=== PATIENT | male | born 1975 | race Caucasian/White ===

== ENCOUNTER 2020-02-01 19:35 | Inpatient (IN) ==
[2020-02-01] MEDS ORDERED: Lidocaine/EPI 1:100k 1% 30 ML VIAL INFILT ONE (19:39)
[2020-02-01 22:27] LABS: VBG HCO3 27 mEq/L (21-27); VBG PCO2 47 mmHg (41-51); VBG PH 7.36 pH Units (7.32-7.42); VBG PO2 55 mmHg (25-50)
[2020-02-01 22:49] LABS: Calcium 9.2 mg/dL (8.6-10.3); Potassium 3.1 mEq/L (3.5-5.1)
[2020-02-01] MEDS ORDERED: D5% in 0.45% NACL w KCl 20 MEQ/1,000 ML MLS IVC PRN (22:54)
[2020-02-01] MEDS ORDERED: D5% in 0.45% NACL 1,000 ML IVC PRN (22:54)
[2020-02-01] MEDS ORDERED: *HR* Dextrose 50 % in Water (Vial) 50 ML VIAL IVP PRN (22:54)
[2020-02-01] MEDS ORDERED: 0.45 % Sodium Chloride w/KCl 20 MEQ/1,000 ML MLS IVC PRN (23:00)
[2020-02-01] MEDS ORDERED: Insulin Human Regular 100 UNIT in 0.9 % Sodium Chloride 100 ML IVC SCH (23:00)
[2020-02-01 23:02] LABS: Basophils # 0.1 K/mcL (0.0-0.2); Basophils % 0.4 %; Eosinophils % 0.2 %; Hematocrit 43.6 % (37.5-50.1); Immature Granulocytes % 1.1 % (0-4); Lymphocytes # 2.4 K/mcL (0.6-4.6); Lymphocytes % 19.2 %; Mean Corpuscular HGB Conc 34.4 g/dL (31.6-35.5); Mean Corpuscular Hemoglobin 28.8 pg (28.0-33.3); Mean Corpuscular Volume 83.8 fL (83.0-100.0); Mean Platelet Volume 9.8 fL (9.4-12.4); Monocytes # 1.1 K/mcL (0.0-1.3); Monocytes % 8.6 %; Platelet Count 271 K/mcL (140-400); Red Cell Distribution Width 13.3 % (11.5-14.5); Segmented Neutrophils % 70.5 %; White Blood Count 12.7 K/mcL (4.3-11.1)
[2020-02-01] MEDS: 0.9 % Sodium Chloride 1,000 ML IVC SCH (23:55)
[2020-02-02] MEDS ORDERED: Insulin Regular, Human 100 UNIT/ML IV PRN ×2 (02:06)
[2020-02-02] MEDS ORDERED: 0.9 % Sodium Chloride 1,000 ML IVC SCH ×2 (02:15)
[2020-02-02] MEDS ORDERED: Naloxone 0.4 MG/ML INJ IVP PRN (02:19)
[2020-02-02 04:07] LABS: BUN/Creatinine Ratio 30 (6-26); Blood Urea Nitrogen 43 mg/dL (6-20); Calcium 8.7 mg/dL (8.6-10.3); Carbon Dioxide 29 mEq/L (23-29); Chloride 96 mEq/L (98-107); Glucose 151 mg/dL (70-105); Osmolality,Calculated 298 (280-300); Potassium 2.9 mEq/L (3.5-5.1); Sodium 137 mEq/L (136-145); eGFR For African Americans > 60 (> 60); eGFR For Non-African Americans 53 (> 60)
[2020-02-02] MEDS ORDERED: Insulin Human Regular 100 UNIT in 0.9 % Sodium Chloride 100 ML IVC SCH (04:15)
[2020-02-02] MEDS ORDERED: Insulin DETEMIR 100 UNIT/ML X5UNITS SQ ONE (04:28)
[2020-02-02] MEDS ORDERED: *HR* Dextrose 50 % in Water (Vial) 50 ML VIAL IVP PRN (04:30)
[2020-02-02] MEDS ORDERED: Dextrose Gel 15 GM/37.5 ML TUBE PO PRN ×2 (04:30)
[2020-02-02] MEDS ORDERED: D5% in Water 1,000 ML IVC PRN (04:30)
[2020-02-02] MEDS: Insulin LISPRO 300 UNITS/3 ML VIAL SQ SCH ×4 (07:54→20:26)
[2020-02-02 09:21] LABS: Hematocrit 38.8 % (37.5-50.1); Hemoglobin 13.7 g/dL (12.9-16.9); Mean Corpuscular HGB Conc 35.3 g/dL (31.6-35.5); Mean Corpuscular Hemoglobin 29.4 pg (28.0-33.3); Mean Corpuscular Volume 83.3 fL (83.0-100.0); Mean Platelet Volume 9.9 fL (9.4-12.4); Platelet Count 188 K/mcL (140-400); Red Blood Count 4.66 M/mcL (4.19-5.50); Red Cell Distribution Width 13.2 % (11.5-14.5)
[2020-02-02 09:30] LABS: Estimated Average Glucose 398 mg/dl
[2020-02-02] MEDS ORDERED: *HR* LORazepam 2 MG/ML VIAL ONE (09:34)
[2020-02-02 09:39] LABS: BUN/Creatinine Ratio 29 (6-26); Blood Urea Nitrogen 42 mg/dL (6-20); Calcium 8.3 mg/dL (8.6-10.3); Carbon Dioxide 26 mEq/L (23-29); Chloride 95 mEq/L (98-107); Glucose 374 mg/dL (70-105); Magnesium 1.4 mg/dL (1.6-2.6); Osmolality,Calculated 306 (280-300); Potassium 3.3 mEq/L (3.5-5.1); Sodium 135 mEq/L (136-145); eGFR For African Americans > 60 (> 60); eGFR For Non-African Americans 53 (> 60)
[2020-02-02] MEDS ORDERED: Potassium Phosphate 44 MEQ in 0.9 % Sodium Chloride 250 ML IVPB ONE (09:44)
[2020-02-02] MEDS: levETIRAcetam 1,000 MG in 0.9 % Sodium Chloride 100 ML IVPB SCH ×2 (10:37→20:26)
[2020-02-02] MEDS ORDERED: Sennosides/Docusate Sodium TABLET PO PRN (17:32)
[2020-02-03 05:05] LABS: INR 0.9; Prothrombin Time 10.5 Seconds (9.4-12.1)
[2020-02-03 05:07] LABS: Basophils % 0.5 %; Eosinophils # 0.1 K/mcL (0.0-0.6); Eosinophils % 0.8 %; Hematocrit 38.7 % (37.5-50.1); Hemoglobin 12.7 g/dL (12.9-16.9); Immature Granulocytes % 0.8 % (0-4); Lymphocytes # 1.7 K/mcL (0.6-4.6); Lymphocytes % 23.4 %; Mean Corpuscular HGB Conc 32.8 g/dL (31.6-35.5); Mean Corpuscular Hemoglobin 28.4 pg (28.0-33.3); Mean Corpuscular Volume 86.6 fL (83.0-100.0); Mean Platelet Volume 9.9 fL (9.4-12.4); Monocytes # 0.7 K/mcL (0.0-1.3); Monocytes % 9.8 %; Neutrophils # 4.8 K/mcL (1.6-8.9); Platelet Count 146 K/mcL (140-400); Red Blood Count 4.47 M/mcL (4.19-5.50); Red Cell Distribution Width 13.3 % (11.5-14.5); Segmented Neutrophils % 64.7 %; White Blood Count 7.4 K/mcL (4.3-11.1)
[2020-02-03 05:35] LABS: Calcium 7.9 mg/dL (8.6-10.3); Magnesium 1.4 mg/dL (1.6-2.6); Potassium 3.1 mEq/L (3.5-5.1)
[2020-02-03] MEDS ORDERED: Insulin LISPRO 300 UNITS/3 ML VIAL SQ ONE (05:45)
[2020-02-03 05:53] LABS: Bilirubin,Urine Negative (Negative); Blood,Urine Negative (Negative); Clarity,Urine Clear (Clear); Color,Urine Colorless (Yellow); Glucose,Urine (UA) >=1000 mg/dL (Normal); Ketones,Urine Negative (Negative); Leukocyte Esterase,Urine Negative (Negative); Nitrite,Urine Negative (Negative); PH,Urine 6.5 pH Units (5.0-8.0); Protein,Urine 70 mg/dL (Neg-Trace); Specific Gravity,Urine 1.018 (1.010-1.025); Urobilinogen,Urine Normal (Normal)
[2020-02-03] MEDS: Insulin LISPRO 300 UNITS/3 ML VIAL SQ SCH ×4 (06:05→20:05)
[2020-02-03] MEDS ORDERED: Insulin DETEMIR 100 UNIT/ML X5UNITS SQ SCH (09:00)
[2020-02-03] MEDS: levETIRAcetam 1,000 MG in 0.9 % Sodium Chloride 100 ML IVPB SCH ×2 (09:40→20:12)
[2020-02-03 13:40] LABS: Hematocrit 36.9 % (37.5-50.1); Hemoglobin 12.5 g/dL (12.9-16.9)
[2020-02-03] MEDS: Acetaminophen 325 MG TABLET PO PRN (15:21)
[2020-02-03] MEDS: Apixaban 5 MG TABLET PO SCH (20:06)
[2020-02-04] MEDS ORDERED: Insulin Regular, Human 100 UNIT/ML IV ONE (01:06)
[2020-02-04] MEDS ORDERED: Insulin Human Regular 5 UNIT in 0.9 % Sodium Chloride 10 ML IV ONE (01:15)
[2020-02-04] MEDS: Acetaminophen 325 MG TABLET PO PRN (01:41)
[2020-02-04 02:27] LABS: Basophils % 0.3 %; Eosinophils # 0.1 K/mcL (0.0-0.6); Eosinophils % 1.4 %; Hematocrit 35.2 % (37.5-50.1); Hemoglobin 12.1 g/dL (12.9-16.9); Immature Granulocytes % 0.6 % (0-4); Lymphocytes # 1.6 K/mcL (0.6-4.6); Lymphocytes % 24.3 %; Mean Corpuscular HGB Conc 34.4 g/dL (31.6-35.5); Mean Corpuscular Hemoglobin 29.5 pg (28.0-33.3); Mean Corpuscular Volume 85.9 fL (83.0-100.0); Mean Platelet Volume 9.9 fL (9.4-12.4); Monocytes # 0.4 K/mcL (0.0-1.3); Monocytes % 6.5 %; Neutrophils # 4.3 K/mcL (1.6-8.9); Platelet Count 146 K/mcL (140-400); Red Cell Distribution Width 13.2 % (11.5-14.5); Segmented Neutrophils % 66.9 %; White Blood Count 6.5 K/mcL (4.3-11.1)
[2020-02-04 02:45] LABS: BUN/Creatinine Ratio 31 (6-26); Blood Urea Nitrogen 45 mg/dL (6-20); Calcium 8.4 mg/dL (8.6-10.3); Carbon Dioxide 29 mEq/L (23-29); Chloride 97 mEq/L (98-107); Glucose 469 mg/dL (70-105); Magnesium 1.7 mg/dL (1.6-2.6); Osmolality,Calculated 308 (280-300); Phosphorous 2.1 mg/dL (2.7-4.5); Potassium 3.4 mEq/L (3.5-5.1); Sodium 133 mEq/L (136-145); eGFR For African Americans > 60 (> 60); eGFR For Non-African Americans 53 (> 60)
[2020-02-04] MEDS ORDERED: Insulin LISPRO 300 UNITS/3 ML VIAL SQ ONE (04:19)
[2020-02-04] MEDS ORDERED: Potassium Phosphate 44 MEQ in 0.9 % Sodium Chloride 250 ML IVPB ONE (07:24)
[2020-02-04] MEDS: Insulin LISPRO 300 UNITS/3 ML VIAL SQ SCH ×4 (08:07→20:17)
[2020-02-04] MEDS: Apixaban 5 MG TABLET PO SCH ×2 (08:07→20:16)
[2020-02-04] MEDS: Insulin DETEMIR 100 UNIT/ML X5UNITS SQ SCH ×2 (08:07→20:16)
[2020-02-04] MEDS: levETIRAcetam 1,000 MG in 0.9 % Sodium Chloride 100 ML IVPB SCH (09:32)
[2020-02-04] MEDS: levETIRAcetam 250 MG TABLET PO SCH (20:16)
[2020-02-04] MEDS: 0.9 % Sodium Chloride 1,000 ML IVC SCH (23:45)
[2020-02-05 01:57] LABS: Basophils % 0.5 %; Eosinophils # 0.1 K/mcL (0.0-0.6); Eosinophils % 1.7 %; Hematocrit 36.5 % (37.5-50.1); Hemoglobin 11.9 g/dL (12.9-16.9); Immature Granulocytes % 0.7 % (0-4); Lymphocytes # 2.1 K/mcL (0.6-4.6); Lymphocytes % 26.3 %; Mean Corpuscular HGB Conc 32.6 g/dL (31.6-35.5); Mean Corpuscular Hemoglobin 28.3 pg (28.0-33.3); Mean Corpuscular Volume 86.9 fL (83.0-100.0); Mean Platelet Volume 9.9 fL (9.4-12.4); Monocytes # 0.8 K/mcL (0.0-1.3); Monocytes % 9.8 %; Neutrophils # 4.9 K/mcL (1.6-8.9); Platelet Count 163 K/mcL (140-400); Red Cell Distribution Width 13.3 % (11.5-14.5); White Blood Count 8.1 K/mcL (4.3-11.1)
[2020-02-05 02:13] LABS: BUN/Creatinine Ratio 30 (6-26); Blood Urea Nitrogen 45 mg/dL (6-20); Calcium 8.7 mg/dL (8.6-10.3); Carbon Dioxide 29 mEq/L (23-29); Chloride 101 mEq/L (98-107); Glucose 263 mg/dL (70-105); Magnesium 1.2 mg/dL (1.6-2.6); Osmolality,Calculated 305 (280-300); Potassium 3.8 mEq/L (3.5-5.1); Sodium 137 mEq/L (136-145); eGFR For African Americans > 60 (> 60); eGFR For Non-African Americans 51 (> 60)
[2020-02-05] MEDS: levETIRAcetam 250 MG TABLET PO SCH (05:39)
[2020-02-05 07:26] VITALS: BP 133/91
[2020-02-05] MEDS: Apixaban 5 MG TABLET PO SCH (08:15)
[2020-02-05] MEDS: Insulin LISPRO 300 UNITS/3 ML VIAL SQ SCH ×2 (08:15→12:26)
[2020-02-05] MEDS: Insulin DETEMIR 100 UNIT/ML X5UNITS SQ SCH (08:21)
[2020-02-05] MEDS ORDERED: Magnesium Oxide 400 MG TABLET PO SCH (09:00)
== END 2020-02-05 12:39 | disposition home or self-care (01) | DRG 420 ==
LOC: EMEROOARM 19:35 → 2NNU 19:35 → SUATTDRO 02-02 02:19 → 3BNU 02-04 15:35
PROVIDERS: ADMIT Internal Medicine; ATTEND Internal Medicine

== ENCOUNTER 2020-02-07 13:14 | Inpatient (IN) ==
[2020-02-07] MEDS ORDERED: 0.9 % Sodium Chloride 1,000 ML IVC ONE (13:26)
[2020-02-07] MEDS ORDERED: *HR* LORazepam 2 MG/ML VIAL ONE (13:39)
[2020-02-07] MEDS ORDERED: Tdap (Boostrix) Vaccine 0.5 ML SYRINGE IM ONE (13:45)
[2020-02-07] MEDS ORDERED: levETIRAcetam 1,000 MG in 0.9 % Sodium Chloride 100 ML IVPB ONE (13:45)
[2020-02-07 13:48] LABS: VBG HCO3 29 mEq/L (21-27); VBG PCO2 48 mmHg (41-51); VBG PH 7.39 pH Units (7.32-7.42); VBG PO2 73 mmHg (25-50)
[2020-02-07 13:51] LABS: Basophils % 0.4 %; Eosinophils # 0.1 K/mcL (0.0-0.6); Eosinophils % 0.6 %; Hematocrit 39.6 % (37.5-50.1); Hemoglobin 13.3 g/dL (12.9-16.9); Immature Granulocytes % 0.8 % (0-4); Lymphocytes # 1.2 K/mcL (0.6-4.6); Mean Corpuscular HGB Conc 33.6 g/dL (31.6-35.5); Mean Corpuscular Hemoglobin 29.1 pg (28.0-33.3); Mean Corpuscular Volume 86.7 fL (83.0-100.0); Mean Platelet Volume 9.8 fL (9.4-12.4); Monocytes # 0.7 K/mcL (0.0-1.3); Monocytes % 7.1 %; Neutrophils # 7.3 K/mcL (1.6-8.9); Platelet Count 174 K/mcL (140-400); Red Blood Count 4.57 M/mcL (4.19-5.50); Red Cell Distribution Width 13.4 % (11.5-14.5); Segmented Neutrophils % 78.1 %; White Blood Count 9.3 K/mcL (4.3-11.1)
[2020-02-07 13:57] LABS: INR 1.1; Prothrombin Time 12.8 Seconds (9.4-12.1)
[2020-02-07 14:10] LABS: Alanine Aminotransferase 73 Units/L (7-52); Albumin 3.6 g/dL (3.5-5.7); Albumin/Globulin Ratio 1.1 (1.1-2.2); Alkaline Phosphatase 150 Units/L (34-104); Aspartate Amino Transferase 39 Units/L (13-39); BUN/Creatinine Ratio 29 (6-26); Bilirubin,Total 0.7 mg/dL (0.3-1.0); Blood Urea Nitrogen 39 mg/dL (6-20); Calcium 8.9 mg/dL (8.6-10.3); Carbon Dioxide 28 mEq/L (23-29); Chloride 92 mEq/L (98-107); Creatine Kinase 151 Units/L (30-223); Globulin 3.3 g/dL (2.4-3.5); Glucose 628 mg/dL (70-105); Magnesium 1.4 mg/dL (1.6-2.6); Osmolality,Calculated 311 (280-300); Phosphorous 3.6 mg/dL (2.7-4.5); Potassium 3.9 mEq/L (3.5-5.1); Sodium 131 mEq/L (136-145); Total Protein 6.9 g/dL (6.4-8.9); Troponin I < 0.03 ng/mL (< 0.04); eGFR For African Americans > 60 (> 60); eGFR For Non-African Americans 58 (> 60)
[2020-02-07] MEDS ORDERED: Ringers Solution, Lactated 1,000 ML IVC ONE (14:13)
[2020-02-07 14:25] LABS: Thyroid Stimulating Hormone 2.709 mcIU/mL (0.340-5.600)
[2020-02-07] MEDS ORDERED: ceFAZolin 1,000 MG in Water for inj. (sterile) 10 ML IVP ONE (15:24)
[2020-02-07 15:38] LABS: Bilirubin,Urine Negative (Negative); Blood,Urine Trace (Negative); Clarity,Urine Clear (Clear); Color,Urine Colorless (Yellow); Glucose,Urine (UA) >=1000 mg/dL (Normal); Ketones,Urine Negative (Negative); Leukocyte Esterase,Urine Negative (Negative); Nitrite,Urine Negative (Negative); Protein,Urine 100 mg/dL (Neg-Trace); RBC,Urine 0-3 per hpf (0-3); Specific Gravity,Urine 1.023 (1.010-1.025); Urobilinogen,Urine Normal (Normal); WBC,Urine 0-3 per hpf (0-3)
[2020-02-07] MEDS ORDERED: Magnesium Sulfate 1 GM/102 ML PIGGYBACK IVPB ONE (15:41)
[2020-02-07] MEDS ORDERED: Insulin Regular, Human 100 UNIT/ML SQ ONE (15:43)
[2020-02-07] MEDS ORDERED: Naloxone 0.4 MG/ML INJ IVP PRN (17:51)
[2020-02-07] MEDS ORDERED: Insulin Regular, Human 100 UNIT/ML IV ONE (18:29)
[2020-02-07] MEDS ORDERED: D5% in 0.45% NACL 1,000 ML IVC PRN (18:29)
[2020-02-07] MEDS ORDERED: *HR* Dextrose 50 % in Water (Vial) 50 ML VIAL IVP PRN (18:29)
[2020-02-07] MEDS ORDERED: Insulin Regular, Human 100 UNIT/ML IV PRN ×2 (18:29)
[2020-02-07] MEDS ORDERED: Insulin Human Regular 100 UNIT in 0.9 % Sodium Chloride 100 ML IVC SCH ×2 (18:30→23:15)
[2020-02-07 18:44] LABS: BUN/Creatinine Ratio 27 (6-26); Blood Urea Nitrogen 33 mg/dL (6-20); Calcium 8.7 mg/dL (8.6-10.3); Carbon Dioxide 27 mEq/L (23-29); Chloride 98 mEq/L (98-107); Glucose 431 mg/dL (70-105); Osmolality,Calculated 304 (280-300); Potassium 3.6 mEq/L (3.5-5.1); Sodium 134 mEq/L (136-145); eGFR For African Americans > 60 (> 60); eGFR For Non-African Americans > 60 (> 60)
[2020-02-07 18:58] LABS: VBG HCO3 28 mEq/L (21-27); VBG PCO2 36 mmHg (41-51); VBG PO2 209 mmHg (25-50)
[2020-02-07 19:13] LABS: BUN/Creatinine Ratio 28 (6-26); Blood Urea Nitrogen 33 mg/dL (6-20); Calcium 8.5 mg/dL (8.6-10.3); Carbon Dioxide 27 mEq/L (23-29); Chloride 100 mEq/L (98-107); Glucose 392 mg/dL (70-105); Osmolality,Calculated 308 (280-300); Potassium 3.6 mEq/L (3.5-5.1); Sodium 137 mEq/L (136-145); eGFR For African Americans > 60 (> 60); eGFR For Non-African Americans > 60 (> 60)
[2020-02-07] MEDS ORDERED: NON-FORMULARY MEDICATION 1 EACH EACH (Levetiracetam [Keppra] 1,000 MG) PO SCH (21:00)
[2020-02-07] MEDS: Apixaban 5 MG TABLET PO SCH (21:08)
[2020-02-07] MEDS: 0.45 % Sodium Chloride w/KCl 20 MEQ/1,000 ML MLS IVC SCH (21:09)
[2020-02-07] MEDS: levETIRAcetam 1,000 MG in 0.9 % Sodium Chloride 100 ML IVPB SCH (21:35)
[2020-02-07] MEDS: CeFAZolin 2 GM/120 ML BAG IVPB SCH (21:52)
[2020-02-07 22:44] LABS: VBG HCO3 29 mEq/L (21-27); VBG PCO2 46 mmHg (41-51); VBG PO2 193 mmHg (25-50)
[2020-02-07 23:01] LABS: BUN/Creatinine Ratio 25 (6-26); Blood Urea Nitrogen 29 mg/dL (6-20); Calcium 8.5 mg/dL (8.6-10.3); Carbon Dioxide 27 mEq/L (23-29); Chloride 101 mEq/L (98-107); Glucose 239 mg/dL (70-105); Osmolality,Calculated 300 (280-300); Potassium 3.8 mEq/L (3.5-5.1); Sodium 138 mEq/L (136-145); eGFR For African Americans > 60 (> 60); eGFR For Non-African Americans > 60 (> 60)
[2020-02-07] MEDS: D5% in 0.45% NACL w KCl 20 MEQ/1,000 ML MLS IVC SCH (23:28)
[2020-02-08] MEDS ORDERED: D5% in Water 1,000 ML IVC PRN (01:26)
[2020-02-08] MEDS ORDERED: Dextrose Gel 15 GM/37.5 ML TUBE PO PRN ×2 (01:26)
[2020-02-08] MEDS: Insulin DETEMIR 100 UNIT/ML X5UNITS SQ SCH ×2 (02:23→23:37)
[2020-02-08 03:41] LABS: Basophils % 0.3 %; Eosinophils # 0.2 K/mcL (0.0-0.6); Eosinophils % 1.6 %; Immature Granulocytes % 0.7 % (0-4); Lymphocytes # 1.8 K/mcL (0.6-4.6); Mean Corpuscular HGB Conc 33.2 g/dL (31.6-35.5); Mean Corpuscular Hemoglobin 28.5 pg (28.0-33.3); Mean Corpuscular Volume 85.9 fL (83.0-100.0); Mean Platelet Volume 9.8 fL (9.4-12.4); Monocytes # 0.9 K/mcL (0.0-1.3); Monocytes % 8.8 %; Neutrophils # 6.9 K/mcL (1.6-8.9); Platelet Count 180 K/mcL (140-400); Red Blood Count 3.96 M/mcL (4.19-5.50); Red Cell Distribution Width 13.6 % (11.5-14.5); Segmented Neutrophils % 70.6 %; White Blood Count 9.8 K/mcL (4.3-11.1)
[2020-02-08 03:42] LABS: Hemoglobin 11.3 g/dL (12.9-16.9); INR 1.1; Prothrombin Time 12.6 Seconds (9.4-12.1)
[2020-02-08 03:45] LABS: Activated Partial Thrombo Time 31.7 Seconds (26.0-36.0)
[2020-02-08 03:57] LABS: BUN/Creatinine Ratio 26 (6-26); Blood Urea Nitrogen 25 mg/dL (6-20); Calcium 8.1 mg/dL (8.6-10.3); Carbon Dioxide 26 mEq/L (23-29); Chloride 105 mEq/L (98-107); Glucose 121 mg/dL (70-105); Osmolality,Calculated 294 (280-300); Potassium 3.2 mEq/L (3.5-5.1); Sodium 139 mEq/L (136-145); eGFR For African Americans > 60 (> 60); eGFR For Non-African Americans > 60 (> 60)
[2020-02-08 04:37] LABS: Amphetamine Screen,Urine Negative ng/mL (Cutoff=1000); Barbiturate Screen,Urine Negative ng/mL (Cutoff=200); Benzodiazepines Screen,Urine Negative ng/mL (Cutoff=200); Cannabinoid Screen,Urine Negative ng/mL (Cutoff = 50); Cocaine Screen,Urine Negative ng/mL (Cutoff= 300); Opiate Screen,Urine Negative ng/mL (Cutoff=300); Phencyclidine Screen,Urine Negative ng/mL (Cutoff=25)
[2020-02-08] MEDS: CeFAZolin 2 GM/120 ML BAG IVPB SCH ×3 (05:17→23:41)
[2020-02-08] MEDS: Insulin LISPRO 300 UNITS/3 ML VIAL SQ SCH ×3 (06:25→19:17)
[2020-02-08 07:04] LABS: BUN/Creatinine Ratio 23 (6-26); Blood Urea Nitrogen 24 mg/dL (6-20); Carbon Dioxide 28 mEq/L (23-29); Chloride 103 mEq/L (98-107); Glucose 146 mg/dL (70-105); Osmolality,Calculated 295 (280-300); Potassium 3.3 mEq/L (3.5-5.1); Sodium 139 mEq/L (136-145); eGFR For African Americans > 60 (> 60); eGFR For Non-African Americans > 60 (> 60)
[2020-02-08] MEDS: 0.45 % Sodium Chloride w/KCl 20 MEQ/1,000 ML MLS IVC SCH ×2 (07:20→07:22)
[2020-02-08 09:37] LABS: Estimated Average Glucose 395 mg/dl
[2020-02-08] MEDS: levETIRAcetam 1,000 MG in 0.9 % Sodium Chloride 100 ML IVPB SCH (10:54)
[2020-02-08] MEDS ORDERED: Sennosides/Docusate Sodium TABLET PO PRN (15:42)
[2020-02-08] MEDS ORDERED: Lidocaine/EPI 1:100k 1% 20 ML VIAL ONE (19:00)
[2020-02-08] MEDS ORDERED: *HR* Midazolam HCl 2 MG/2 ML VIAL ONE (19:08)
[2020-02-08] MEDS ORDERED: *HR* Propofol 200 MG/20 ML VIAL IVP ONE (19:08)
[2020-02-08] MEDS ORDERED: Lidocaine -MPF 2% 2 ML VIAL ONE ×2 (19:08→19:09)
[2020-02-08] MEDS ORDERED: Ondansetron 4 MG/2 ML VIAL ONE (19:08)
[2020-02-08] MEDS ORDERED: *HR* FentaNYL (PF) 100 MCG/2 ML VIAL ONE (19:08)
[2020-02-08] MEDS ORDERED: Dexamethasone 4 MG/ML VIAL ONE (19:08)
[2020-02-08] MEDS ORDERED: *HR* FentaNYL (PF) 100 MCG/2 ML VIAL IVP PRN (19:27)
[2020-02-08] MEDS ORDERED: *HR* HYDROmorphone PF 0.5 MG/0.5 ML SYRINGE IVP PRN (19:27)
[2020-02-08] MEDS ORDERED: *HR* Metoprolol 5 MG/5 ML VIAL IVP PRN (19:29)
[2020-02-08] MEDS ORDERED: Naloxone 0.4 MG/ML INJ IVP PRN (19:29)
[2020-02-08] MEDS: Gabapentin 400 MG CAPSULE PO SCH (22:15)
[2020-02-08] MEDS: Ringers Solution, Lactated 1,000 ML IVC SCH (22:24)
[2020-02-09] MEDS: levETIRAcetam 1,000 MG in 0.9 % Sodium Chloride 100 ML IVPB SCH ×3 (00:21→21:11)
[2020-02-09] MEDS: Insulin LISPRO 300 UNITS/3 ML VIAL SQ SCH ×7 (00:52→21:14)
[2020-02-09] MEDS: CeFAZolin 2 GM/120 ML BAG IVPB SCH ×2 (05:03→08:54)
[2020-02-09] MEDS: *HR* LORazepam 2 MG/ML VIAL IVP PRN ×2 (05:04→08:05)
[2020-02-09 06:10] LABS: Basophils % 0.3 %; Eosinophils # 0.1 K/mcL (0.0-0.6); Eosinophils % 1.2 %; Hematocrit 35.6 % (37.5-50.1); Hemoglobin 11.8 g/dL (12.9-16.9); Immature Granulocytes % 0.6 % (0-4); Lymphocytes # 1.4 K/mcL (0.6-4.6); Lymphocytes % 21.4 %; Mean Corpuscular HGB Conc 33.1 g/dL (31.6-35.5); Mean Corpuscular Hemoglobin 29.5 pg (28.0-33.3); Mean Platelet Volume 10.2 fL (9.4-12.4); Monocytes # 0.8 K/mcL (0.0-1.3); Monocytes % 12.5 %; Neutrophils # 4.1 K/mcL (1.6-8.9); Platelet Count 178 K/mcL (140-400); Red Cell Distribution Width 13.7 % (11.5-14.5); White Blood Count 6.4 K/mcL (4.3-11.1)
[2020-02-09 06:21] LABS: Potassium 3.7 mEq/L (3.5-5.1)
[2020-02-09] MEDS ORDERED: Insulin LISPRO 300 UNITS/3 ML VIAL SQ SCH (07:34)
[2020-02-09] MEDS: Gabapentin 400 MG CAPSULE PO SCH ×4 (08:48→21:11)
[2020-02-09] MEDS: Aspirin 81 MG TAB.CHEW PO SCH (08:48)
[2020-02-09] MEDS: Ringers Solution, Lactated 1,000 ML IVC SCH (08:52)
[2020-02-09] MEDS: *HR* LORazepam 2 MG/ML VIAL IVP ONE (08:53)
[2020-02-09] MEDS ORDERED: Valproic Acid INJ 1,000 MG in 0.9 % Sodium Chloride 100 ML IVPB STA (09:06)
[2020-02-09] MEDS: Insulin DETEMIR 100 UNIT/ML X5UNITS SQ SCH ×2 (10:03→21:11)
[2020-02-09] MEDS: Apixaban 5 MG TABLET PO SCH (21:11)
[2020-02-09] MEDS: Divalproex (12 HR) 500 MG TABLET PO SCH ×2 (21:13→21:29)
[2020-02-10 01:36] LABS: Basophils % 0.3 %; Eosinophils # 0.1 K/mcL (0.0-0.6); Eosinophils % 1.5 %; Hematocrit 34.6 % (37.5-50.1); Hemoglobin 11.1 g/dL (12.9-16.9); Immature Granulocytes % 0.5 % (0-4); Lymphocytes # 1.3 K/mcL (0.6-4.6); Lymphocytes % 19.9 %; Mean Corpuscular HGB Conc 32.1 g/dL (31.6-35.5); Mean Corpuscular Hemoglobin 28.8 pg (28.0-33.3); Mean Corpuscular Volume 89.6 fL (83.0-100.0); Mean Platelet Volume 10.1 fL (9.4-12.4); Monocytes # 0.8 K/mcL (0.0-1.3); Monocytes % 12.4 %; Neutrophils # 4.3 K/mcL (1.6-8.9); Platelet Count 157 K/mcL (140-400); Red Blood Count 3.86 M/mcL (4.19-5.50); Red Cell Distribution Width 13.5 % (11.5-14.5); Segmented Neutrophils % 65.4 %; White Blood Count 6.6 K/mcL (4.3-11.1)
[2020-02-10 01:55] LABS: Magnesium 1.3 mg/dL (1.6-2.6)
[2020-02-10] MEDS: Insulin LISPRO 300 UNITS/3 ML VIAL SQ SCH ×8 (03:14→21:07)
[2020-02-10] MEDS: Ringers Solution, Lactated 1,000 ML IVC SCH (04:15)
[2020-02-10] MEDS: Apixaban 5 MG TABLET PO SCH ×2 (10:22→21:04)
[2020-02-10] MEDS: Divalproex (12 HR) 500 MG TABLET PO SCH ×2 (10:22→21:04)
[2020-02-10] MEDS: Gabapentin 400 MG CAPSULE PO SCH ×3 (10:22→21:04)
[2020-02-10] MEDS: Aspirin 81 MG TAB.CHEW PO SCH (10:23)
[2020-02-10] MEDS: levETIRAcetam 1,000 MG in 0.9 % Sodium Chloride 100 ML IVPB SCH ×2 (10:23→21:06)
[2020-02-10] MEDS: *HR* OxyCODONE/APAP 5/325 TABLET PO PRN (10:23)
[2020-02-10] MEDS: 0.9 % Sodium Chloride 1,000 ML IVC SCH ×2 (10:24→22:31)
[2020-02-10] MEDS: Insulin DETEMIR 100 UNIT/ML X5UNITS SQ SCH ×2 (10:26→21:07)
[2020-02-10] MEDS: Haloperidol Lactate 5 MG/ML VIAL IVP PRN (13:54)
[2020-02-10] MEDS: *HR* LORazepam 2 MG/ML VIAL IVP PRN (13:55)
[2020-02-11] MEDS: Insulin LISPRO 300 UNITS/3 ML VIAL SQ SCH ×11 (00:17→21:42)
[2020-02-11] MEDS: *HR* OxyCODONE/APAP 5/325 TABLET PO PRN ×2 (03:21→12:10)
[2020-02-11 03:44] LABS: Basophils % 0.4 %; Eosinophils # 0.2 K/mcL (0.0-0.6); Hemoglobin 10.8 g/dL (12.9-16.9); Immature Granulocytes % 0.8 % (0-4); Lymphocytes # 1.6 K/mcL (0.6-4.6); Lymphocytes % 20.5 %; Mean Corpuscular HGB Conc 30.9 g/dL (31.6-35.5); Mean Corpuscular Volume 90.7 fL (83.0-100.0); Mean Platelet Volume 9.8 fL (9.4-12.4); Monocytes # 0.8 K/mcL (0.0-1.3); Monocytes % 10.4 %; Platelet Count 148 K/mcL (140-400); Red Blood Count 3.86 M/mcL (4.19-5.50); Red Cell Distribution Width 13.6 % (11.5-14.5); Segmented Neutrophils % 65.9 %; White Blood Count 7.6 K/mcL (4.3-11.1)
[2020-02-11 03:48] LABS: BUN/Creatinine Ratio 22 (6-26); Blood Urea Nitrogen 29 mg/dL (6-20); Calcium 7.9 mg/dL (8.6-10.3); Carbon Dioxide 26 mEq/L (23-29); Chloride 107 mEq/L (98-107); Glucose 195 mg/dL (70-105); Magnesium 1.5 mg/dL (1.6-2.6); Osmolality,Calculated 303 (280-300); Phosphorous 2.3 mg/dL (2.7-4.5); Potassium 3.8 mEq/L (3.5-5.1); Sodium 141 mEq/L (136-145); eGFR For African Americans > 60 (> 60); eGFR For Non-African Americans 59 (> 60)
[2020-02-11] MEDS: levETIRAcetam 1,000 MG in 0.9 % Sodium Chloride 100 ML IVPB SCH ×2 (11:58→21:38)
[2020-02-11] MEDS: Insulin DETEMIR 100 UNIT/ML X5UNITS SQ SCH ×2 (12:00→21:43)
[2020-02-11] MEDS: Aspirin 81 MG TAB.CHEW PO SCH (12:00)
[2020-02-11] MEDS: Gabapentin 400 MG CAPSULE PO SCH ×3 (12:00→21:31)
[2020-02-11] MEDS: Apixaban 5 MG TABLET PO SCH ×2 (12:00→21:31)
[2020-02-11] MEDS: Divalproex (12 HR) 500 MG TABLET PO SCH ×2 (12:00→21:31)
[2020-02-11] MEDS: Haloperidol Lactate 5 MG/ML VIAL IVP PRN (12:10)
[2020-02-11] MEDS: *HR* LORazepam 2 MG/ML VIAL IVP PRN (12:11)
[2020-02-11] MEDS: 0.9 % Sodium Chloride 1,000 ML IVC SCH ×3 (12:12→21:28)
[2020-02-11] MEDS: D5% in 0.45% NACL w KCl 20 MEQ/1,000 ML MLS IVC SCH ×2 (19:43→19:46)
[2020-02-11] MEDS: 0.45 % Sodium Chloride w/KCl 20 MEQ/1,000 ML MLS IVC SCH ×2 (19:43→19:45)
[2020-02-11] MEDS: *HR* LORazepam 2 MG/ML VIAL IVP ONE (19:44)
[2020-02-11] MEDS: Ringers Solution, Lactated 1,000 ML IVC SCH ×2 (19:44)
[2020-02-12] MEDS: Insulin LISPRO 300 UNITS/3 ML VIAL SQ SCH ×9 (02:39→20:51)
[2020-02-12] MEDS: 0.9 % Sodium Chloride 1,000 ML IVC SCH ×3 (05:52→16:51)
[2020-02-12] MEDS: Aspirin 81 MG TAB.CHEW PO SCH (08:16)
[2020-02-12] MEDS: Divalproex (12 HR) 500 MG TABLET PO SCH ×2 (08:16→20:42)
[2020-02-12] MEDS: Gabapentin 400 MG CAPSULE PO SCH ×3 (08:16→20:42)
[2020-02-12] MEDS: Apixaban 5 MG TABLET PO SCH ×2 (08:16→20:42)
[2020-02-12] MEDS: Insulin DETEMIR 100 UNIT/ML X5UNITS SQ SCH ×2 (08:17→20:43)
[2020-02-12] MEDS: levETIRAcetam 1,000 MG in 0.9 % Sodium Chloride 100 ML IVPB SCH ×2 (08:17→20:54)
[2020-02-12 08:36] LABS: BUN/Creatinine Ratio 21 (6-26); Blood Urea Nitrogen 28 mg/dL (6-20); Carbon Dioxide 28 mEq/L (23-29); Chloride 107 mEq/L (98-107); Glucose 221 mg/dL (70-105); Magnesium 0.9 mg/dL (1.6-2.6); Osmolality,Calculated 306 (280-300); Phosphorous 2.4 mg/dL (2.7-4.5); Potassium 3.8 mEq/L (3.5-5.1); Sodium 142 mEq/L (136-145); White Blood Count 7.8 K/mcL (4.3-11.1); eGFR For African Americans > 60 (> 60); eGFR For Non-African Americans 59 (> 60)
[2020-02-12 08:37] LABS: Basophils % 0.4 %; Eosinophils # 0.1 K/mcL (0.0-0.6); Eosinophils % 1.8 %; Hematocrit 33.5 % (37.5-50.1); Hemoglobin 10.9 g/dL (12.9-16.9); Immature Granulocytes % 0.6 % (0-4); Lymphocytes # 1.3 K/mcL (0.6-4.6); Lymphocytes % 16.6 %; Mean Corpuscular HGB Conc 32.5 g/dL (31.6-35.5); Mean Corpuscular Hemoglobin 29.4 pg (28.0-33.3); Mean Corpuscular Volume 90.3 fL (83.0-100.0); Mean Platelet Volume 9.9 fL (9.4-12.4); Monocytes # 0.7 K/mcL (0.0-1.3); Monocytes % 8.5 %; Neutrophils # 5.6 K/mcL (1.6-8.9); Platelet Count 136 K/mcL (140-400); Red Blood Count 3.71 M/mcL (4.19-5.50); Red Cell Distribution Width 13.7 % (11.5-14.5); Segmented Neutrophils % 72.1 %
[2020-02-12] MEDS ORDERED: Valproic Acid INJ 1,000 MG in 0.9 % Sodium Chloride 100 ML IVPB ONE (12:40)
[2020-02-12] MEDS: Haloperidol Lactate 5 MG/ML VIAL IVP PRN ×2 (12:43→20:55)
[2020-02-13] MEDS: 0.9 % Sodium Chloride 1,000 ML IVC SCH ×2 (00:05→06:02)
[2020-02-13] MEDS: Insulin LISPRO 300 UNITS/3 ML VIAL SQ SCH ×6 (00:21→12:46)
[2020-02-13 01:33] LABS: White Blood Count 6.6 K/mcL (4.3-11.1)
[2020-02-13 01:34] LABS: Basophils % 0.3 %; Eosinophils # 0.2 K/mcL (0.0-0.6); Eosinophils % 2.7 %; Hematocrit 31.1 % (37.5-50.1); Hemoglobin 9.9 g/dL (12.9-16.9); Immature Granulocytes % 0.9 % (0-4); Lymphocytes # 1.4 K/mcL (0.6-4.6); Lymphocytes % 21.5 %; Mean Corpuscular HGB Conc 31.8 g/dL (31.6-35.5); Mean Corpuscular Hemoglobin 28.6 pg (28.0-33.3); Mean Corpuscular Volume 89.9 fL (83.0-100.0); Mean Platelet Volume 9.4 fL (9.4-12.4); Monocytes # 0.5 K/mcL (0.0-1.3); Monocytes % 8.1 %; Neutrophils # 4.4 K/mcL (1.6-8.9); Platelet Count 138 K/mcL (140-400); Red Blood Count 3.46 M/mcL (4.19-5.50); Red Cell Distribution Width 13.5 % (11.5-14.5); Segmented Neutrophils % 66.5 %
[2020-02-13 01:49] LABS: BUN/Creatinine Ratio 27 (6-26); Blood Urea Nitrogen 36 mg/dL (6-20); Carbon Dioxide 28 mEq/L (23-29); Chloride 110 mEq/L (98-107); Glucose 130 mg/dL (70-105); Magnesium 1.3 mg/dL (1.6-2.6); Osmolality,Calculated 308 (280-300); Phosphorous 2.4 mg/dL (2.7-4.5); Potassium 3.6 mEq/L (3.5-5.1); Sodium 144 mEq/L (136-145); eGFR For African Americans > 60 (> 60); eGFR For Non-African Americans 58 (> 60)
[2020-02-13] MEDS: Divalproex (12 HR) 500 MG TABLET PO SCH (08:11)
[2020-02-13] MEDS: Apixaban 5 MG TABLET PO SCH (08:11)
[2020-02-13] MEDS: Aspirin 81 MG TAB.CHEW PO SCH (08:11)
[2020-02-13] MEDS: Gabapentin 400 MG CAPSULE PO SCH (08:11)
[2020-02-13] MEDS: Insulin DETEMIR 100 UNIT/ML X5UNITS SQ SCH (08:12)
[2020-02-13] MEDS: levETIRAcetam 1,000 MG in 0.9 % Sodium Chloride 100 ML IVPB SCH (11:01)
[2020-02-13 11:08] VITALS: BP 156/89
== END 2020-02-13 15:40 | DRG 951 ==
LOC: EMEROOARM 13:14 → 3BNU 13:14 → 2NNU 20:07 → 2ANU 02-08 18:07
PROVIDERS: ADMIT Student in an Organized Health Care Education/Training Program; ATTEND Student in an Organized Health Care Education/Training Program

== ENCOUNTER 2020-03-29 20:52 | Inpatient (IN) ==
[2020-03-29 21:22] LABS: Basophils % 0.6 %; Eosinophils % 0.3 %; Hematocrit 36.6 % (37.5-50.1); Hemoglobin 11.5 g/dL (12.9-16.9); Immature Granulocytes % 1.3 % (0-4); Lymphocytes % 30.3 %; Mean Corpuscular HGB Conc 31.4 g/dL (31.6-35.5); Mean Corpuscular Hemoglobin 28.5 pg (28.0-33.3); Mean Corpuscular Volume 90.6 fL (83.0-100.0); Mean Platelet Volume 9.5 fL (9.4-12.4); Monocytes # 0.5 K/mcL (0.0-1.3); Monocytes % 16.4 %; Neutrophils # 1.6 K/mcL (1.6-8.9); Platelet Count 131 K/mcL (140-400); Red Blood Count 4.04 M/mcL (4.19-5.50); Red Cell Distribution Width 14.3 % (11.5-14.5); Segmented Neutrophils % 51.1 %; White Blood Count 3.2 K/mcL (4.3-11.1)
[2020-03-29 21:23] LABS: VBG HCO3 29 mEq/L (21-27); VBG PCO2 51 mmHg (41-51); VBG PH 7.37 pH Units (7.32-7.42); VBG PO2 59 mmHg (25-50)
[2020-03-29] MEDS ORDERED: 0.9 % Sodium Chloride 1,000 ML IVC ONE ×3 (21:45→23:23)
[2020-03-29 22:03] LABS: Alanine Aminotransferase 31 Units/L (7-52); Albumin 3.3 g/dL (3.5-5.7); Albumin/Globulin Ratio 1.1 (1.1-2.2); Alkaline Phosphatase 142 Units/L (34-104); Aspartate Amino Transferase 35 Units/L (13-39); BUN/Creatinine Ratio 19 (6-26); Bilirubin,Total 0.5 mg/dL (0.3-1.0); Blood Urea Nitrogen 31 mg/dL (6-20); Calcium 7.9 mg/dL (8.6-10.3); Carbon Dioxide 28 mEq/L (23-29); Chloride 89 mEq/L (98-107); Globulin 2.9 g/dL (2.4-3.5); Osmolality,Calculated 315 (280-300); Potassium 4.5 mEq/L (3.5-5.1); Sodium 127 mEq/L (136-145); Total Protein 6.2 g/dL (6.4-8.9); eGFR For African Americans 56 (> 60); eGFR For Non-African Americans 46 (> 60)
[2020-03-29 22:09] LABS: Troponin I < 0.03 ng/mL (< 0.04)
[2020-03-29 22:53] LABS: Bilirubin,Urine Negative (Negative); Blood,Urine Trace (Negative); Clarity,Urine Clear (Clear); Color,Urine Colorless (Yellow); Glucose,Urine (UA) >=1000 mg/dL (Normal); Ketones,Urine Negative (Negative); Leukocyte Esterase,Urine Negative (Negative); Nitrite,Urine Negative (Negative); PH,Urine 6.5 pH Units (5.0-8.0); Protein,Urine 50 mg/dL (Neg-Trace); RBC,Urine 0-3 per hpf (0-3); Specific Gravity,Urine 1.019 (1.010-1.025); Urobilinogen,Urine Normal (Normal)
[2020-03-29] MEDS ORDERED: *HR* Dextrose 50 % in Water (Vial) 50 ML VIAL IVP PRN (23:33)
[2020-03-29] MEDS ORDERED: Insulin Human Regular 100 UNIT in 0.9 % Sodium Chloride 100 ML IVC SCH (23:45)
[2020-03-30 00:05] LABS: Glucose 894 mg/dL (70-105)
[2020-03-30] MEDS ORDERED: Naloxone 0.4 MG/ML INJ IVP PRN (01:34)
[2020-03-30] MEDS ORDERED: Ondansetron 4 MG/2 ML VIAL IVP PRN (01:34)
[2020-03-30] MEDS ORDERED: D5% in 0.45% NACL w KCl 20 MEQ/1,000 ML MLS IVC PRN (01:36)
[2020-03-30] MEDS ORDERED: D5% in 0.45% NACL 1,000 ML IVC PRN (01:36)
[2020-03-30] MEDS ORDERED: Insulin Human Regular 100 UNIT in 0.9 % Sodium Chloride 100 ML IVC SCH (01:45)
[2020-03-30] MEDS ORDERED: 0.9 % Sodium Chloride 1,000 ML IVC PRN (01:45)
[2020-03-30 01:50] LABS: Calcium 7.5 mg/dL (8.6-10.3); Potassium 4.1 mEq/L (3.5-5.1)
[2020-03-30] MEDS: 0.9 % Sodium Chloride w KCl 20 MEQ/1,000 ML MLS IVC SCH ×3 (02:06→06:13)
[2020-03-30 07:04] LABS: Basophils % 0.3 %; Eosinophils % 1.1 %; Hemoglobin 11.7 g/dL (12.9-16.9); Immature Granulocytes % 0.9 % (0-4); Lymphocytes # 1.2 K/mcL (0.6-4.6); Lymphocytes % 33.2 %; Mean Corpuscular HGB Conc 33.4 g/dL (31.6-35.5); Mean Corpuscular Hemoglobin 29.1 pg (28.0-33.3); Mean Corpuscular Volume 87.1 fL (83.0-100.0); Mean Platelet Volume 9.2 fL (9.4-12.4); Monocytes # 0.4 K/mcL (0.0-1.3); Monocytes % 12.5 %; Neutrophils # 1.8 K/mcL (1.6-8.9); Platelet Count 123 K/mcL (140-400); Red Blood Count 4.02 M/mcL (4.19-5.50); Red Cell Distribution Width 14.3 % (11.5-14.5); White Blood Count 3.5 K/mcL (4.3-11.1)
[2020-03-30 07:16] LABS: Prothrombin Time 11.5 Seconds (9.4-12.1)
[2020-03-30 07:26] LABS: Chol/HDL Ratio 3.9 (0-4.9)
[2020-03-30 07:28] LABS: BUN/Creatinine Ratio 21 (6-26); Blood Urea Nitrogen 28 mg/dL (6-20); Calcium 7.4 mg/dL (8.6-10.3); Carbon Dioxide 25 mEq/L (23-29); Chloride 105 mEq/L (98-107); Glucose 244 mg/dL (70-105); Osmolality,Calculated 300 (280-300); Potassium 3.7 mEq/L (3.5-5.1); Sodium 138 mEq/L (136-145); eGFR For African Americans > 60 (> 60); eGFR For Non-African Americans 58 (> 60)
[2020-03-30] MEDS ORDERED: *HR* LORazepam 2 MG/ML VIAL IVP PRN (07:45)
[2020-03-30] MEDS: Apixaban 5 MG TABLET PO SCH ×2 (08:00→21:25)
[2020-03-30] MEDS: levETIRAcetam 250 MG TABLET PO SCH ×2 (08:00→21:25)
[2020-03-30] MEDS: Divalproex (12 HR) 500 MG TABLET PO SCH ×2 (08:00→21:24)
[2020-03-30] MEDS: Aspirin 81 MG TAB.CHEW PO SCH (08:43)
[2020-03-30 08:49] LABS: Phosphorous 2.9 mg/dL (2.7-4.5)
[2020-03-30] MEDS ORDERED: Insulin DETEMIR 100 UNIT/ML X5UNITS SQ SCH (09:00)
[2020-03-30] MEDS: Insulin DETEMIR 100 UNIT/ML X5UNITS SQ SCH ×3 (09:10→21:26)
[2020-03-30 09:18] LABS: Estimated Average Glucose 421 mg/dl
[2020-03-30] MEDS: Insulin LISPRO 300 UNITS/3 ML VIAL SQ SCH ×3 (11:47→16:45)
[2020-03-30] MEDS ORDERED: Insulin LISPRO 300 UNITS/3 ML VIAL SQ SCH (12:00)
[2020-03-30] MEDS: Gabapentin 400 MG CAPSULE PO SCH ×2 (16:44→21:25)
[2020-03-31 06:10] LABS: Hematocrit 31.3 % (37.5-50.1); Mean Corpuscular HGB Conc 32.3 g/dL (31.6-35.5); Mean Corpuscular Hemoglobin 28.3 pg (28.0-33.3); Mean Corpuscular Volume 87.7 fL (83.0-100.0); Mean Platelet Volume 9.6 fL (9.4-12.4); Platelet Count 114 K/mcL (140-400); Red Blood Count 3.57 M/mcL (4.19-5.50); Red Cell Distribution Width 14.5 % (11.5-14.5); White Blood Count 3.4 K/mcL (4.3-11.1)
[2020-03-31 06:11] LABS: Hemoglobin 10.1 g/dL (12.9-16.9)
[2020-03-31 06:39] LABS: Calcium 7.6 mg/dL (8.6-10.3); Magnesium 1.2 mg/dL (1.6-2.6); Potassium 4.7 mEq/L (3.5-5.1)
[2020-03-31] MEDS: Insulin LISPRO 300 UNITS/3 ML VIAL SQ SCH ×8 (06:57→16:55)
[2020-03-31] MEDS: 0.9 % Sodium Chloride w KCl 20 MEQ/1,000 ML MLS IVC SCH (07:26)
[2020-03-31] MEDS: Divalproex (12 HR) 500 MG TABLET PO SCH ×2 (07:44→22:30)
[2020-03-31] MEDS: Apixaban 5 MG TABLET PO SCH ×2 (07:44→22:30)
[2020-03-31] MEDS: Gabapentin 400 MG CAPSULE PO SCH ×4 (07:45→22:30)
[2020-03-31] MEDS: Aspirin 81 MG TAB.CHEW PO SCH (07:45)
[2020-03-31] MEDS: levETIRAcetam 250 MG TABLET PO SCH ×2 (07:46→22:30)
[2020-03-31] MEDS ORDERED: Insulin Human Regular 10 UNIT in 0.9 % Sodium Chloride 10 ML IV ONE (08:11)
[2020-03-31] MEDS: Insulin DETEMIR 100 UNIT/ML X5UNITS SQ SCH ×3 (08:11→22:31)
[2020-03-31] MEDS ORDERED: 0.45 % Sodium Chloride w/KCl 20 MEQ/1,000 ML MLS IVC SCH ×2 (08:15→17:15)
[2020-03-31] MEDS ORDERED: Insulin DETEMIR 100 UNIT/ML X5UNITS SQ ONE (08:17)
[2020-03-31] MEDS: Multivit/Ca/Min/Fe/FA 1 TAB TABLET PO SCH (11:55)
[2020-03-31] MEDS: Calcium Gluconate 1gm/50mL 1 GM/50 ML BAG IVPB SCH ×4 (11:57→19:22)
[2020-03-31] MEDS ORDERED: Insulin LISPRO 300 UNITS/3 ML VIAL SQ SCH (12:00)
[2020-03-31 13:00] LABS: Calcium 7.8 mg/dL (8.6-10.3); Magnesium 1.7 mg/dL (1.6-2.6); Potassium 4.2 mEq/L (3.5-5.1)
[2020-03-31 13:01] LABS: % Iron Saturation 11 % (20-55); Iron 30 mcg/dL (65-175); Transferrin 198 mg/dL (203-362)
[2020-03-31 13:20] LABS: Ferritin 172 ng/mL (20-250)
[2020-03-31 13:25] LABS: Folate 10.3 ng/mL (3.0-16.0)
[2020-03-31] MEDS ORDERED: Potassium Phosphate 44 MEQ in 0.9 % Sodium Chloride 250 ML IVPB ONE (17:04)
[2020-03-31] MEDS ORDERED: Benzonatate 100 MG CAPSULE PO PRN (17:58)
[2020-03-31 18:14] LABS: C-Reactive Protein < 5 mg/L (Less than 10); Lactate Dehydrogenase 192 Units/L (140-271)
[2020-03-31 21:59] LABS: ABG Base Excess 1 mEq/L (-2 to 3); ABG HCO3 25 mEq/L (21-27); ABG Oxygen Saturation 93 % (95-98); ABG PCO2 36 mmHg (35-45); ABG PH 7.45 pH Units (7.32-7.45); ABG PO2 62 mmHg (85-104); ABG TCO2 26 mEq/L (20-26)
[2020-03-31] MEDS: Magnesium Oxide 400 MG TABLET PO SCH (22:30)
[2020-04-01] MEDS: Acetaminophen 325 MG TABLET PO PRN (03:11)
[2020-04-01] MEDS: Insulin LISPRO 300 UNITS/3 ML VIAL SQ SCH ×8 (04:48→23:24)
[2020-04-01 05:04] LABS: Hematocrit 34.2 % (37.5-50.1); Hemoglobin 11.2 g/dL (12.9-16.9); Mean Corpuscular HGB Conc 32.7 g/dL (31.6-35.5); Mean Corpuscular Hemoglobin 28.6 pg (28.0-33.3); Mean Corpuscular Volume 87.2 fL (83.0-100.0); Mean Platelet Volume 10.1 fL (9.4-12.4); Platelet Count 110 K/mcL (140-400); Red Blood Count 3.92 M/mcL (4.19-5.50); Red Cell Distribution Width 14.4 % (11.5-14.5); White Blood Count 2.3 K/mcL (4.3-11.1)
[2020-04-01 05:23] LABS: Calcium 7.9 mg/dL (8.6-10.3); Magnesium 1.6 mg/dL (1.6-2.6)
[2020-04-01] MEDS: Gabapentin 400 MG CAPSULE PO SCH ×3 (08:18→22:38)
[2020-04-01] MEDS: Divalproex (12 HR) 500 MG TABLET PO SCH ×2 (08:18→22:39)
[2020-04-01] MEDS: Apixaban 5 MG TABLET PO SCH ×2 (08:18→22:38)
[2020-04-01] MEDS: levETIRAcetam 250 MG TABLET PO SCH ×2 (08:18→22:44)
[2020-04-01] MEDS: Aspirin 81 MG TAB.CHEW PO SCH (08:18)
[2020-04-01] MEDS: Multivit/Ca/Min/Fe/FA 1 TAB TABLET PO SCH (08:18)
[2020-04-01] MEDS: Magnesium Oxide 400 MG TABLET PO SCH ×2 (08:19→22:38)
[2020-04-01] MEDS: Insulin DETEMIR 100 UNIT/ML X5UNITS SQ SCH ×2 (08:49→23:25)
[2020-04-02] MEDS: Acetaminophen 325 MG TABLET PO PRN ×2 (04:44→14:42)
[2020-04-02] MEDS: Multivit/Ca/Min/Fe/FA 1 TAB TABLET PO SCH (07:52)
[2020-04-02] MEDS: Aspirin 81 MG TAB.CHEW PO SCH (07:52)
[2020-04-02] MEDS: levETIRAcetam 250 MG TABLET PO SCH ×2 (07:52→19:41)
[2020-04-02] MEDS: Apixaban 5 MG TABLET PO SCH ×2 (07:53→19:41)
[2020-04-02] MEDS: Insulin DETEMIR 100 UNIT/ML X5UNITS SQ SCH ×2 (07:53→20:05)
[2020-04-02] MEDS: Divalproex (12 HR) 500 MG TABLET PO SCH ×2 (07:53→19:41)
[2020-04-02] MEDS: Insulin LISPRO 300 UNITS/3 ML VIAL SQ SCH ×7 (07:53→20:06)
[2020-04-02] MEDS: Gabapentin 400 MG CAPSULE PO SCH ×3 (07:53→19:41)
[2020-04-02] MEDS: Magnesium Oxide 400 MG TABLET PO SCH ×2 (07:53→19:41)
[2020-04-02 08:19] LABS: Basophils % 0.4 %; Mean Corpuscular Volume 88.2 fL (83.0-100.0); Mean Platelet Volume 10.3 fL (9.4-12.4); Red Cell Distribution Width 14.3 % (11.5-14.5)
[2020-04-02 08:21] LABS: Eosinophils % 0.4 %; Hemoglobin 11.2 g/dL (12.9-16.9); Immature Granulocytes % 2.2 % (0-4); Immature Platelets 2.8 % (1.1-6.1); Lymphocytes # 1.1 K/mcL (0.6-4.6); Lymphocytes % 38.7 %; Mean Corpuscular Hemoglobin 28.2 pg (28.0-33.3); Monocytes # 0.3 K/mcL (0.0-1.3); Monocytes % 10.4 %; Neutrophils # 1.3 K/mcL (1.6-8.9); Red Blood Count 3.97 M/mcL (4.19-5.50); Segmented Neutrophils % 47.9 %; White Blood Count 2.8 K/mcL (4.3-11.1)
[2020-04-02 08:24] LABS: Platelet Count 90 K/mcL (140-400)
[2020-04-02 08:31] LABS: Calcium 7.9 mg/dL (8.6-10.3); Magnesium 1.5 mg/dL (1.6-2.6); Phosphorous 3.7 mg/dL (2.7-4.5); Potassium 4.6 mEq/L (3.5-5.1)
[2020-04-02] MEDS ORDERED: Magnesium Sulfate 1 GM/102 ML PIGGYBACK IVPB ONE (12:22)
[2020-04-03] MEDS ORDERED: Insulin LISPRO 300 UNITS/3 ML VIAL SQ ONE (04:00)
[2020-04-03] MEDS: Insulin LISPRO 300 UNITS/3 ML VIAL SQ SCH ×7 (07:47→20:53)
[2020-04-03] MEDS: Apixaban 5 MG TABLET PO SCH ×2 (07:48→20:08)
[2020-04-03] MEDS: Aspirin 81 MG TAB.CHEW PO SCH (07:48)
[2020-04-03] MEDS: Multivit/Ca/Min/Fe/FA 1 TAB TABLET PO SCH (07:48)
[2020-04-03] MEDS: Gabapentin 400 MG CAPSULE PO SCH ×2 (07:48→17:13)
[2020-04-03] MEDS: Divalproex (12 HR) 500 MG TABLET PO SCH ×2 (07:48→20:08)
[2020-04-03] MEDS: lisinopriL 5 MG TABLET PO SCH (07:48)
[2020-04-03] MEDS: Magnesium Oxide 400 MG TABLET PO SCH (07:49)
[2020-04-03] MEDS: levETIRAcetam 250 MG TABLET PO SCH ×2 (07:49→20:08)
[2020-04-03] MEDS: Insulin DETEMIR 100 UNIT/ML X5UNITS SQ SCH ×2 (07:50→20:44)
[2020-04-03 15:17] LABS: Calcium 7.6 mg/dL (8.6-10.3); Potassium 4.3 mEq/L (3.5-5.1)
[2020-04-03] MEDS: Acetaminophen 325 MG TABLET PO PRN (20:36)
[2020-04-04 06:21] LABS: Calcium 8.2 mg/dL (8.6-10.3); Magnesium 1.7 mg/dL (1.6-2.6); Potassium 4.6 mEq/L (3.5-5.1)
[2020-04-04] MEDS: Insulin LISPRO 300 UNITS/3 ML VIAL SQ SCH ×7 (09:22→20:53)
[2020-04-04] MEDS: Multivit/Ca/Min/Fe/FA 1 TAB TABLET PO SCH (09:23)
[2020-04-04] MEDS: levETIRAcetam 250 MG TABLET PO SCH ×2 (09:23→20:33)
[2020-04-04] MEDS: Aspirin 81 MG TAB.CHEW PO SCH (09:23)
[2020-04-04] MEDS: Divalproex (12 HR) 500 MG TABLET PO SCH ×2 (09:23→20:51)
[2020-04-04] MEDS: Apixaban 5 MG TABLET PO SCH ×2 (09:23→20:33)
[2020-04-04] MEDS: Insulin DETEMIR 100 UNIT/ML X5UNITS SQ SCH ×2 (09:23→20:51)
[2020-04-04 20:28] LABS: Bilirubin,Urine Negative (Negative); Blood,Urine Trace (Negative); Clarity,Urine Clear (Clear); Color,Urine Light-Yellow (Yellow); Glucose,Urine (UA) Normal (Normal); Ketones,Urine Negative (Negative); Leukocyte Esterase,Urine Negative (Negative); Mucus,Urine Few per lpf (None-Few); Nitrite,Urine Negative (Negative); PH,Urine 6.5 pH Units (5.0-8.0); Protein,Urine 100 mg/dL (Neg-Trace); RBC,Urine 0-3 per hpf (0-3); Specific Gravity,Urine 1.014 (1.010-1.025); Urobilinogen,Urine Normal (Normal); WBC,Urine 0-3 per hpf (0-3)
[2020-04-04] MEDS: Acetaminophen 325 MG TABLET PO PRN (20:34)
[2020-04-04 21:48] LABS: Sodium, Urine 80.7 mEq/L
[2020-04-05 03:13] LABS: Magnesium 1.5 mg/dL (1.6-2.6); Potassium 4.9 mEq/L (3.5-5.1)
[2020-04-05] MEDS: Insulin LISPRO 300 UNITS/3 ML VIAL SQ SCH ×6 (07:46→21:07)
[2020-04-05] MEDS: Divalproex (12 HR) 500 MG TABLET PO SCH ×2 (07:57→21:20)
[2020-04-05] MEDS: Multivit/Ca/Min/Fe/FA 1 TAB TABLET PO SCH (07:57)
[2020-04-05] MEDS: Apixaban 5 MG TABLET PO SCH ×2 (07:57→21:20)
[2020-04-05] MEDS: Insulin DETEMIR 100 UNIT/ML X5UNITS SQ SCH ×2 (07:57→21:08)
[2020-04-05] MEDS: Aspirin 81 MG TAB.CHEW PO SCH (07:57)
[2020-04-05] MEDS: levETIRAcetam 250 MG TABLET PO SCH ×2 (07:57→21:21)
[2020-04-06 02:52] LABS: Calcium 8.3 mg/dL (8.6-10.3); Magnesium 1.5 mg/dL (1.6-2.6); Potassium 4.3 mEq/L (3.5-5.1)
[2020-04-06] MEDS: Insulin LISPRO 300 UNITS/3 ML VIAL SQ SCH ×4 (07:51→20:54)
[2020-04-06] MEDS: Multivit/Ca/Min/Fe/FA 1 TAB TABLET PO SCH (09:32)
[2020-04-06] MEDS: Divalproex (12 HR) 500 MG TABLET PO SCH ×2 (09:32→20:59)
[2020-04-06] MEDS: Aspirin 81 MG TAB.CHEW PO SCH (09:33)
[2020-04-06] MEDS: levETIRAcetam 250 MG TABLET PO SCH ×2 (09:33→20:59)
[2020-04-06] MEDS: Apixaban 5 MG TABLET PO SCH ×2 (09:33→20:59)
[2020-04-06] MEDS: Insulin DETEMIR 100 UNIT/ML X5UNITS SQ SCH ×2 (09:34→20:57)
[2020-04-07 06:09] LABS: Calcium 8.1 mg/dL (8.6-10.3); Magnesium 1.5 mg/dL (1.6-2.6); Potassium 4.8 mEq/L (3.5-5.1)
[2020-04-07] MEDS: levETIRAcetam 250 MG TABLET PO SCH ×2 (07:49→20:29)
[2020-04-07] MEDS: Aspirin 81 MG TAB.CHEW PO SCH (07:49)
[2020-04-07] MEDS: Apixaban 5 MG TABLET PO SCH ×2 (07:49→20:29)
[2020-04-07] MEDS: Multivit/Ca/Min/Fe/FA 1 TAB TABLET PO SCH (07:49)
[2020-04-07] MEDS: Divalproex (12 HR) 500 MG TABLET PO SCH ×2 (07:49→20:28)
[2020-04-07] MEDS: Insulin DETEMIR 100 UNIT/ML X5UNITS SQ SCH ×2 (07:50→20:29)
[2020-04-07] MEDS: Insulin LISPRO 300 UNITS/3 ML VIAL SQ SCH ×4 (07:51→20:29)
[2020-04-07] MEDS ORDERED: Magnesium Oxide 400 MG TABLET PO ONE (08:05)
[2020-04-08 06:32] LABS: Calcium 8.2 mg/dL (8.6-10.3); Magnesium 1.5 mg/dL (1.6-2.6); Potassium 4.2 mEq/L (3.5-5.1)
[2020-04-08] MEDS: Insulin LISPRO 300 UNITS/3 ML VIAL SQ SCH ×4 (08:08→19:48)
[2020-04-08] MEDS: Aspirin 81 MG TAB.CHEW PO SCH (08:14)
[2020-04-08] MEDS: levETIRAcetam 250 MG TABLET PO SCH ×2 (08:14→19:48)
[2020-04-08] MEDS: Divalproex (12 HR) 500 MG TABLET PO SCH ×2 (08:14→19:48)
[2020-04-08] MEDS: Multivit/Ca/Min/Fe/FA 1 TAB TABLET PO SCH (08:14)
[2020-04-08] MEDS: Apixaban 5 MG TABLET PO SCH ×2 (08:14→19:47)
[2020-04-08] MEDS: Insulin DETEMIR 100 UNIT/ML X5UNITS SQ SCH ×2 (08:14→19:50)
[2020-04-08] MEDS ORDERED: Magnesium Oxide 400 MG TABLET PO ONE (09:32)
[2020-04-09] MEDS: Magnesium Oxide 400 MG TABLET PO SCH (08:51)
[2020-04-09] MEDS: levETIRAcetam 250 MG TABLET PO SCH ×2 (08:51→21:36)
[2020-04-09] MEDS: Aspirin 81 MG TAB.CHEW PO SCH (08:51)
[2020-04-09] MEDS: Multivit/Ca/Min/Fe/FA 1 TAB TABLET PO SCH (08:51)
[2020-04-09] MEDS: Insulin DETEMIR 100 UNIT/ML X5UNITS SQ SCH ×2 (08:51→21:37)
[2020-04-09] MEDS: Divalproex (12 HR) 500 MG TABLET PO SCH ×2 (08:51→21:36)
[2020-04-09] MEDS: Apixaban 5 MG TABLET PO SCH ×2 (08:51→21:36)
[2020-04-09] MEDS: Insulin LISPRO 300 UNITS/3 ML VIAL SQ SCH ×4 (08:52→21:37)
[2020-04-10 02:35] LABS: Calcium 7.9 mg/dL (8.6-10.3); Potassium 4.3 mEq/L (3.5-5.1)
[2020-04-10] MEDS: Magnesium Oxide 400 MG TABLET PO SCH (07:44)
[2020-04-10] MEDS: levETIRAcetam 250 MG TABLET PO SCH ×2 (07:44→20:10)
[2020-04-10] MEDS: Divalproex (12 HR) 500 MG TABLET PO SCH ×2 (07:44→20:10)
[2020-04-10] MEDS: Multivit/Ca/Min/Fe/FA 1 TAB TABLET PO SCH (07:44)
[2020-04-10] MEDS: Insulin LISPRO 300 UNITS/3 ML VIAL SQ SCH ×5 (07:45→20:11)
[2020-04-10] MEDS: Aspirin 81 MG TAB.CHEW PO SCH (07:45)
[2020-04-10] MEDS: Apixaban 5 MG TABLET PO SCH ×2 (07:45→20:10)
[2020-04-10] MEDS: lisinopriL 5 MG TABLET PO SCH (07:45)
[2020-04-10] MEDS: Insulin DETEMIR 100 UNIT/ML X5UNITS SQ SCH ×2 (07:45→20:09)
[2020-04-10 18:42] VITALS: BP 119/66
[2020-04-11 08:03] LABS: Calcium 8.2 mg/dL (8.6-10.3); Magnesium 1.5 mg/dL (1.6-2.6); Potassium 4.7 mEq/L (3.5-5.1)
[2020-04-11] MEDS: levETIRAcetam 250 MG TABLET PO SCH (08:04)
[2020-04-11] MEDS: Apixaban 5 MG TABLET PO SCH (08:04)
[2020-04-11] MEDS: Multivit/Ca/Min/Fe/FA 1 TAB TABLET PO SCH (08:04)
[2020-04-11] MEDS: Aspirin 81 MG TAB.CHEW PO SCH (08:04)
[2020-04-11] MEDS: Insulin LISPRO 300 UNITS/3 ML VIAL SQ SCH ×4 (08:05→12:04)
[2020-04-11] MEDS: lisinopriL 5 MG TABLET PO SCH (08:05)
[2020-04-11] MEDS: Divalproex (12 HR) 500 MG TABLET PO SCH (08:05)
[2020-04-11] MEDS: Insulin DETEMIR 100 UNIT/ML X5UNITS SQ SCH (08:05)
[2020-04-11] MEDS ORDERED: Ringers Solution, Lactated 1,000 ML IVC ONE (08:17)
== END 2020-04-11 15:00 | disposition home health service (06) | DRG 420 ==
LOC: EMEROOARM 20:52 → 2NNU 20:52 → SUATTDRO 23:41 → 2NNU 03-30 00:25 → 3ANU 03-30 19:45 → 2NENU 03-31 18:19 → CDU 04-04 15:37 → 2NENU 04-04 23:11 → SUATTDRO 04-05 15:36
PROVIDERS: ADMIT Family Medicine; ATTEND Internal Medicine